=== PATIENT | male | born 1970 | race Caucasian/White ===

== ENCOUNTER 2018-08-07 02:39 | Emergency (ER) | payer MEDICAID, OTHER ==
[2018-08-07] MEDS ORDERED: SILVER NITRATE APPLICATOR 1 APPL TP ONE ×2 (03:12→03:16)
[2018-08-07] MEDS ORDERED: LIDOCAINE HCL 4% TOPICAL SOLN 50ML ONE (03:13)
[2018-08-07] MEDS ORDERED: PHENYLEPHRINE 0.5% NASAL 15 ML SPRAY ONE (03:13)
[2018-08-07] MEDS ORDERED: PHENYLEPHRINE 0.25% NASAL 15 ML SPRAY EACHNARE ONE (03:16)
[2018-08-07] MEDS ORDERED: LIDOCAINE 4% 15 GM CREAM TP ONE (03:17)
--- NOTE | 2018-08-07 03:26 | EDPHY ---
H & P Stated Complaint: nose bleed Time Seen by Provider: 08/07/18 03:00 HPI/ROS: Chief Complaint: Nosebleed HPI: 48-year-old male has had intermittent nose bleeding for the last 12 hr or so. Patient has had URI type symptoms has been blowing his nose frequently. He has been taking Mucinex D as well. No history of prior nosebleeds. No recent trauma or nasal foreign bodies. No headache. No nausea or vomiting. He did apply direct pressure in his now seem to stop. ROS: 10 systems were reviewed and were negative except those elements noted in the HPI. PMH: ROS: 10 systems were reviewed and were negative except those elements noted in the HPI. Social History: No smoking, no alcohol, no recreational drug use Family History: non-contributory Physical Exam: General: Awake, alert, no acute distress HEENT: Eyes: Pupils equal round reactive light and accommodation, sclera normal Nose: Dried blood in the right near, no active bleeding, nasal clamp in place Skin: No rash - Personal History Current Tetanus Diphtheria and Acellular Pertussis (TDAP): Yes - Medical/Surgical History Hx Asthma: No Hx Chronic Respiratory Disease: No Hx Diabetes: No Hx Cardiac Disease: No Hx Renal Disease: No Hx Cirrhosis: No Hx Alcoholism: No Hx HIV/AIDS: No Hx Splenectomy or Spleen Trauma: No - Social History Smoking Status: Never smoked Constitutional: Initial Vital Signs Temperature (C) 36.6 C 08/07/18 02:42 Heart Rate 91 08/07/18 02:42 Respiratory Rate 18 08/07/18 02:42 Blood Pressure 150/98 H 08/07/18 02:42 O2 Sat (%) 95 08/07/18 02:42 Allergies/Adverse Reactions: No Known Allergies Allergy (Unverified 08/07/18 02:42) Home Medications: Medication Instructions Recorded NK [No Known Home Meds] 08/07/18 Medical Decision Making Procedures: Procedure: Epistaxis control. After verbal consent was obtained, the patient was anesthetized with 4% lidocaine and Coleman-Synephrine. The anterior epistaxis was identified. The patient was treated with silver nitrate cautery. Following the procedure the patient was re-examined and the bleeding was well controlled. The patient tolerated the procedure well. The procedure was performed by myself. - Data Points Medications Given: Discontinued Medications Lidocaine (Anecream 4% Cream) 1 rafael TP EDNOW ONE Stop: 08/07/18 03:18 Last Admin: 08/07/18 03:17 Dose: Not Given Phenylephrine HCl (Neosynephrine) 1 spray EACHNARE EDNOW ONE Stop: 08/07/18 03:17 Last Admin: 08/07/18 03:18 Dose: Not Given Silver Nitrate/Potassium Nitrate (Silver Nitrate Applicator) 1 each TP EDNOW ONE Stop: 08/07/18 03:17 Last Admin: 08/07/18 03:18 Dose: Not Given Departure - Departure Disposition: Home, Routine, Self-Care Clinical Impression: Acute anterior epistaxis Condition: Good Instructions: Nosebleed (ED) Additional Instructions: Avoid blowing her nose for the next 48 hr. Apply Vaseline to both nostrils twice a day. Keep a humidifier in your bedroom at night. Follow up with primary care physician in 3-4 days for further evaluation. If you're nose starts to bleed again apply pressure with a nose clamp on your nose for 20-30 minutes. If this does not stop the bleeding return to the emergency department for further evaluation. Referrals: Vishnu Berumen MD [Medical Doctor] - As per Instructions
[2018-08-07 04:26] VITALS: BP 113/87
== END 2018-08-07 04:30 | disposition home or self-care (01) ==
PROC: 3E09XTZ Introduction of Destructive Agent into Nose, External Approach (ICD-10-PCS; principal; 2018-08-07)
DX: R04.0 Epistaxis (principal)